=== PATIENT | female | born 1985 | race Two or more races ===

== ENCOUNTER 2023-05-25 07:16 | Emergency (ER) | payer SELFPAY ==
[~2023-05-25] VITALS: Ht 154.9 cm; Wt 65.8 kg
[2023-05-25] MEDS ORDERED: LORAZEPAM 0.5 MG TABLET ONE (07:36)
[2023-05-25] MEDS: LORAZEPAM 1 MG TABLET PO ONE (07:37)
[2023-05-25 08:56] VITALS: BP 135/99; TEMP 98.1; O2SAT 100
== END 2023-05-25 09:04 | disposition home or self-care (01) ==
LOC: ER 07:21
DX: F41.9 Anxiety disorder, unspecified (principal); R00.2 Palpitations; R00.0 Tachycardia, unspecified; R20.2 Paresthesia of skin